=== PATIENT | female | born 1985 | race Hispanic/Latino ===

== ENCOUNTER 2018-06-05 09:24 | Day surgery (SDC) | payer MEDICAID ==
[2018-06-05] VITALS (7 sets, daily range): BP systolic 74–133; BP diastolic 28–92
[~2018-06-05] VITALS: Ht 149.9 cm; Wt 74.8 kg
[~2018-06-05 09:24] MED LIST: BIRTH CONTROL PO; LEVO50TA11 PO; SERT100T PO; SODIUM CHLORIDE 0.9% 1000ML 1,000 ML IV ONE
[2018-06-05] MEDS ORDERED: PROPOFOL 10 MG/ML 20ML VIAL IV ONE (12:18)
== END 2018-06-05 13:10 | disposition home or self-care (01) ==
LOC: ENDO 09:24 → DAH 09:24 → ENDO 13:10
PROVIDERS: ATTEND Internal Medicine
DX: K31.89 Other diseases of stomach and duodenum (principal); F41.9 Anxiety disorder, unspecified; F32.9 Major depressive disorder, single episode, unspecified; Z68.34 Body mass index [BMI] 34.0-34.9, adult; Z79.899 Other long term (current) drug therapy; K21.9 Gastro-esophageal reflux disease without esophagitis
CPT/HCPCS: 36415; 43239; 84703; 88305; 88312; A4606; J2704; J7030